=== PATIENT | female | born 1985 | race African-American/Black ===

== ENCOUNTER 2023-04-09 21:35 | Emergency (ER) | payer MEDICAID, OTHER ==
[~2023-04-09] VITALS: Ht 167.6 cm; Wt 121.8 kg
[2023-04-09 22:46] VITALS: O2SAT 99
[2023-04-09] MEDS ORDERED: ACETAMINOPHEN 325MG TABLET PO ONE (23:00)
[2023-04-10] MEDS ORDERED: IBUP-2029 MT (00:29)
[2023-04-10] MEDS ORDERED: AMOX-494 MT (00:29)
[2023-04-10 01:30] VITALS: BP 119/76; PULSE 105; RESP 18; TEMP 99.1
== END 2023-04-10 01:30 | disposition home or self-care (01) ==
LOC: ER 21:35
DX: J03.90 Acute tonsillitis, unspecified (principal); R50.9 Fever, unspecified
CPT/HCPCS: 99282

== ENCOUNTER 2024-01-26 22:01 | Emergency (ER) | payer MEDICAID ==
[~2024-01-26] VITALS: Ht 172.7 cm; Wt 116.0 kg
[~2024-01-26 22:01] MED LIST: AMOX-494 MT; IBUP-2029 MT
[2024-01-26 22:20] VITALS: BP 130/88; PULSE 99; RESP 15; TEMP 97.9; O2SAT 99
== END 2024-01-26 23:39 | disposition left against medical advice (07) ==
LOC: ER 22:01
DX: J02.9 Acute pharyngitis, unspecified (principal); Z53.21 Procedure and treatment not carried out due to patient leaving prior to being seen by health care provider
CPT/HCPCS: 99281